=== PATIENT | male | born 1960 | race Caucasian/White ===

== ENCOUNTER → 2017-03-12 | Outpatient (CLI) | payer SELFPAY ==
--- NOTE | 2017-03-12 16:31 | RADIOLOGY REPORT (SQ) ---
EXAM DESCRIPTION: BARIUM SWALLOW PHARYNX ONLY COMPLETED DATE/TIME: 03/12/2017 9:58 am REASON FOR STUDY: DYSPHAGIA (R13.19) R13.19 OTHER DYSPHAGIA COMPARISON: CT abdomen and pelvis 02/25/2015 TECHNIQUE: Under fluoroscopic guidance, patient ingested effervescent granules followed by thick and thin barium. Fluoroscopic spot images and routine radiographic images acquired and stored on PACS. 12 MM BARIUM TABLET GIVEN: Yes No significant delay in passage. LIMITATIONS: None. FLUOROSCOPY TIME: FLUORO TIME: 0.4 minutes 6 series of digital images saved to PACS. FINDINGS: NEUROMUSCULAR COORDINATION OF SWALLOW: Normal. No aspiration. ESOPHAGEAL MOTILITY: Normal peristalsis. No esophageal spasm. However, there is a prominent cricopha ryngeus impression on the upper esophagus seen during swallowing. No Zenker's diverticulum. ESOPHAGEAL MUCOSA: Normal mucosa without masses or ulceration. GASTRO-ESOPHAGEAL JUNCTION: Tiny hiatal hernia. No gastroesophageal reflux demonstrated on today's s tudy NON-GI TRACT STRUCTURES: Degenerative disc changes with bilateral C5-6 high-grade foraminal narrowing . OTHER: No other significant finding. IMPRESSION: Prominent cricopharyngeus impression on the upper cervical esophagus without Zenker's di verticulum. Small sliding hiatal hernia. COMMENT: Quality ID [id number]: Final reports for procedures using fluoroscopy that document radiation exp osure indices, or exposure time and number of fluorographic images (if radiation exposure indices are not available) TECHNICAL DOCUMENTATION: JOB ID: [id number] [employer]- All Rights Reserved
== END ==
LOC: RAD 08:56
PROVIDERS: ATTEND Family Medicine
DX: R13.19 Other dysphagia (principal)
CPT/HCPCS: 74210